=== PATIENT | male | born 1980 | race Caucasian/White ===

== ENCOUNTER → 2017-10-30 17:51 | Outpatient (CLI) | payer OTHER, MEDICAID, SELFPAY ==
--- NOTE | 2017-10-30 18:00 | MRI_ITS ---
STUDY: MRI BRAIN WITH AND WITHOUT CONTRAST (ATTENTION INTERNAL AUDITORY CANALS - I.A.C.'s) REASON FOR EXAM: Male, 37 years old. Right ear tinnitus and hearing loss and headaches TECHNIQUE: Standardized multiplanar fat and water weighted pulse sequences were obtained. 6 ml of Gadavist contrast material was administered intravenously for the contrast portion of the examination. COMPARISON: None. FINDINGS: Normal bilateral temporal bones. Normal bilateral internal auditory canals. There is no demonstrated intracanalicular or cisternal vestibular schwannoma (acoustic neuroma). There is no enhancement of the bilateral VIIth or VIIIth cranial nerves. Normal bilateral cochlea, vestibules and semicircular canals. Normal size of the ventricles and extra-axial spaces for the patient's age. Normal white matter tracts of the supratentorial brain. Normal bilateral basal ganglia. Normal thalami. Normal flow voids within the major intracranial circulation suggesting patency by spin echo criteria. Normal venous enhancement. There is no enhancing intra-axial or extra-axial abnormality. There is no extra-axial fluid accumulation. . There is a small nonenhancing nodule within the pituitary on the right which may be consistent with microadenoma. measuring 5.3 x 3.2 mm Normal Infundibular stalk, optic chiasm and hypothalamus. Normal tectal plate and pineal gland. Normal midbrain, scott and medulla. Normal cerebellum. Normal basal cisterns. No demonstrated orbital abnormality, within the constraints of a routine brain study. Normal visualized paranasal sinuses. Normal calvarium and skull base. Normal visualized soft tissue structures. Normal visualized upper cervical spine. MRI/Brain W/WO Contrast IMPRESSION: Normal unenhanced and enhanced MRI of the bilateral internal auditory canals (I.A.C's). Incidental finding of small pituitary microadenoma of uncertain etiology and clinical significance Electronically Signed: Demetrius Fraser MD at 19:25 EDT , Service support ,
== END ==
PROVIDERS: Visit Provider Otolaryngology
DX: D35.2 Benign neoplasm of pituitary gland (principal); H91.90 Unspecified hearing loss, unspecified ear; R27.0 Ataxia, unspecified
CPT/HCPCS: 70553; A9585